=== PATIENT | male | born 1970 | race Two or more races ===

== ENCOUNTER 2018-07-27 10:36 | Outpatient (CLI) | payer OTHER ==
[~2018-07-27 10:36] MED LIST: ASA
== END 2018-07-27 10:45 | disposition home or self-care (01) ==
LOC: RAD 10:36
DX: R06.02 Shortness of breath (principal)

== ENCOUNTER 2019-04-21 10:00 | Outpatient (CLI) | payer OTHER | END 2019-04-21 10:01 | disposition home or self-care (01) | LOC: NUCLEAR 10:00 | DX: I82.401 Acute embolism and thrombosis of unspecified deep veins of right lower extremity (principal); I82.402 Acute embolism and thrombosis of unspecified deep veins of left lower extremity; I73.9 Peripheral vascular disease, unspecified ==

== ENCOUNTER 2019-04-22 09:15 | Outpatient (CLI) | payer OTHER | END 2019-04-22 09:25 | disposition home or self-care (01) | LOC: NUCLEAR 09:15 | DX: I87.2 Venous insufficiency (chronic) (peripheral) (principal) ==

== ENCOUNTER 2021-05-14 11:13 | Outpatient (CLI) | payer OTHER ==
[2021-05-22] MEDS ORDERED: JANUMET XR 50-1 EACH PO (10:56)
[2021-05-22] MEDS ORDERED: GLIPIZIDE10 MG PO (10:56)
[2021-05-22] MEDS ORDERED: SIMVASTATIN40 MG PO (10:57)
[2021-05-22] MEDS ORDERED: TOPROL XL50 M1 PO (10:57)
[2021-05-22] MEDS ORDERED: ZESTRIL2.5 MG PO (10:57)
== END 2021-05-14 11:20 | disposition home or self-care (01) ==
LOC: RAD 11:13
PROVIDERS: ATTEND Urology
DX: I10 Essential (primary) hypertension (principal); E11.9 Type 2 diabetes mellitus without complications

== ENCOUNTER 2021-05-14 12:07 | Outpatient (CLI) | payer OTHER ==
[2021-05-22] MEDS ORDERED: GLIPIZIDE10 MG PO (10:56)
[2021-05-22] MEDS ORDERED: JANUMET XR 50-1 EACH PO (10:56)
[2021-05-22] MEDS ORDERED: ZESTRIL2.5 MG PO (10:57)
[2021-05-22] MEDS ORDERED: TOPROL XL50 M1 PO (10:57)
[2021-05-22] MEDS ORDERED: SIMVASTATIN40 MG PO (10:57)
== END 2021-05-14 12:13 | disposition home or self-care (01) ==
LOC: LAB 12:07 → EKG 12:07 → LAB 12:13
PROVIDERS: ATTEND Urology
DX: I10 Essential (primary) hypertension (principal); E11.9 Type 2 diabetes mellitus without complications

== ENCOUNTER 2021-05-29 10:10 | Day surgery (SDC) | payer OTHER ==
[~2021-05-29 10:10] MED LIST changes: +GLIPIZIDE10 MG PO; +JANUMET XR 50-1 EACH PO; +SIMVASTATIN40 MG PO; +TOPROL XL50 M1 PO; +ZESTRIL2.5 MG PO
== END 2021-05-29 20:10 | disposition home or self-care (01) ==
LOC: CIR.AMB 10:10
PROVIDERS: ATTEND Urology
DX: N47.1 Phimosis (principal); Z20.822 Contact with and (suspected) exposure to COVID-19

== ENCOUNTER → 2022-04-15 09:17 | Outpatient (CLI) | payer OTHER | END | disposition home or self-care (01) | LOC: LAB 09:17 | PROVIDERS: ATTEND Specialist | DX: E11.65 Type 2 diabetes mellitus with hyperglycemia (principal) ==

== ENCOUNTER 2023-05-18 09:04 | Outpatient (CLI) | payer OTHER | END 2023-05-18 09:09 | disposition home or self-care (01) | LOC: LAB 09:04 | PROVIDERS: ATTEND Internal Medicine | DX: D64.9 Anemia, unspecified (principal); E11.8 Type 2 diabetes mellitus with unspecified complications; I48.91 Unspecified atrial fibrillation; N39.0 Urinary tract infection, site not specified; E03.9 Hypothyroidism, unspecified; M35.1 Other overlap syndromes; E11.9 Type 2 diabetes mellitus without complications; E55.9 Vitamin D deficiency, unspecified; Z12.5 Encounter for screening for malignant neoplasm of prostate; Z12.11 Encounter for screening for malignant neoplasm of colon; R97.20 Elevated prostate specific antigen [PSA]; N40.0 Benign prostatic hyperplasia without lower urinary tract symptoms; N41.9 Inflammatory disease of prostate, unspecified ==

== ENCOUNTER 2023-05-18 10:18 | Outpatient (CLI) | payer OTHER | END 2023-05-18 10:20 | disposition home or self-care (01) | LOC: SONOGRAMA 10:18 | PROVIDERS: ATTEND Internal Medicine | DX: I11.9 Hypertensive heart disease without heart failure (principal); N40.0 Benign prostatic hyperplasia without lower urinary tract symptoms ==

== ENCOUNTER 2023-05-19 08:20 | Outpatient (CLI) | payer OTHER | END 2023-05-19 08:24 | disposition home or self-care (01) | LOC: LAB 08:20 | PROVIDERS: ATTEND Internal Medicine | DX: D64.9 Anemia, unspecified (principal); E11.8 Type 2 diabetes mellitus with unspecified complications; I48.91 Unspecified atrial fibrillation; E03.9 Hypothyroidism, unspecified; M53.1 Cervicobrachial syndrome; E11.9 Type 2 diabetes mellitus without complications; E55.9 Vitamin D deficiency, unspecified; Z12.5 Encounter for screening for malignant neoplasm of prostate; Z12.11 Encounter for screening for malignant neoplasm of colon; R97.20 Elevated prostate specific antigen [PSA]; N40.0 Benign prostatic hyperplasia without lower urinary tract symptoms; N41.9 Inflammatory disease of prostate, unspecified ==

== ENCOUNTER 2023-06-03 08:32 | Outpatient (CLI) | payer OTHER | END 2023-06-03 08:33 | disposition home or self-care (01) | LOC: LAB 08:32 | PROVIDERS: ATTEND Internal Medicine | DX: E11.9 Type 2 diabetes mellitus without complications (principal); D64.9 Anemia, unspecified; E88.81 Metabolic syndrome and other insulin resistance; E78.5 Hyperlipidemia, unspecified ==

== ENCOUNTER → 2023-07-10 09:10 | Outpatient (CLI) | payer OTHER ==
[2023-07-10 10:36] LABS: CALCIUM 9.3 mg/dL (8.5-10.1); CREATININE SERUM 0.89 mg/dL (0.70-1.30); POTASSIUM 4.05 mEq/L (3.5-5.1)
[2023-07-10 13:13] LABS: GFR 89.08
== END | disposition home or self-care (01) ==
LOC: LAB 09:10
PROVIDERS: ATTEND Internal Medicine
DX: E11.9 Type 2 diabetes mellitus without complications (principal); E78.5 Hyperlipidemia, unspecified

== ENCOUNTER 2023-11-03 08:43 | Outpatient (CLI) | payer OTHER ==
[2023-11-03 10:08] LABS: PH,URINE 6.5 (5.0-8.0); URINE APPEARANCE Clear; URINE BILIRRUBIN Negative (NEGATIVE); URINE BLOOD Negative; URINE COLOR Dark Yellow; URINE GLUCOSE Negative (NEGATIVE); URINE LEUKOCYTE Negative; URINE NITRATE Negative; URINE PROTEIN Negative (NEGATIVE); URINE UROBILINOGEN 0.2 E.U./dl
[2023-11-03 10:09] LABS: URINE BACTERIA 401.9 uL (0.0-1933); URINE EPITHELIAL CELLS 3.2 uL (0.0-38.8); URINE WBC 5.4 uL (0.0-23.2)
[2023-11-03 10:13] LABS: URINE RBC 1.5 uL (0.0-20.8)
[2023-11-03 10:20] LABS: HEMATOCRIT 44.3 % (39.0-48.0); HEMOGLOBIN 15.1 g/dL (13-16.00); MEAN CELL VOLUME 85.3 fL (80.0-100.00); MEAN CORPUSCULAR HEMOGLOBIN 29.1 pg (27.00-32.0); MEAN CORPUSCULAR HGB CONC 34.1 g/dl (32.0-36.0); PLATELET COUNT 265 K/uL (150-450); RED CELL DISTRIBUTION WIDTH 13.8 % (11.5-14.5)
[2023-11-03 10:37] LABS: ERYTHROCYTE SEDIMENTATION RATE 37 mm/hr
[2023-11-03 10:52] LABS: ALBUMIN 3.5 gm/dL (3.4-5.0); BILIRUBIN TOTAL 0.24 mg/dL (0.3-1.2); CHOL HDL RATIO 3.5 (0-5.0); CREATININE SERUM 0.9 mg/dL (0.70-1.30); GFR 87.94; POTASSIUM 4.44 mEq/L (3.5-5.1); PROSTATIC SPECIFIC ANTIGEN 0.19 NG/ML (0.010-4.00); T4 FREE 0.97 NG/ML (0.76-1.46); TOTAL PROTEIN 7.5 gm/dL (6.4-8.2); TSH 3.68 uIU/mL (0.358-3.74)
[2023-11-03 11:04] LABS: INR 1.02; PARTIAL THROMBOPLASTIN TIME 27.3 SECONDS (22.0-34.0); PROTHROMBIN TIME 10.7 SECONDS (9.0-11.5)
== END 2023-11-03 08:44 | disposition home or self-care (01) ==
LOC: LAB 08:43
PROVIDERS: ATTEND Internal Medicine
DX: D64.9 Anemia, unspecified (principal); E11.8 Type 2 diabetes mellitus with unspecified complications; I48.91 Unspecified atrial fibrillation; N39.0 Urinary tract infection, site not specified; E03.9 Hypothyroidism, unspecified; M35.1 Other overlap syndromes; E11.9 Type 2 diabetes mellitus without complications; E55.9 Vitamin D deficiency, unspecified; Z12.5 Encounter for screening for malignant neoplasm of prostate; Z12.11 Encounter for screening for malignant neoplasm of colon; R97.20 Elevated prostate specific antigen [PSA]; N40.0 Benign prostatic hyperplasia without lower urinary tract symptoms; N41.9 Inflammatory disease of prostate, unspecified

== ENCOUNTER 2023-11-13 08:09 | Outpatient (CLI) | payer OTHER ==
[2023-11-13 08:53] LABS: HEMATOCRIT 43.5 % (39.0-48.0); HEMOGLOBIN 14.7 g/dL (13-16.00); MEAN CELL VOLUME 83.9 fL (80.0-100.00); MEAN CORPUSCULAR HEMOGLOBIN 28.4 pg (27.00-32.0); MEAN CORPUSCULAR HGB CONC 33.8 g/dl (32.0-36.0); PLATELET COUNT 271 K/uL (150-450); RED BLOOD COUNT 5.18 M/uL (4.00-6.00); RED CELL DISTRIBUTION WIDTH 13.9 % (11.5-14.5)
[2023-11-13 09:51] LABS: CALCIUM 9.3 mg/dL (8.5-10.1); CREATININE SERUM 0.9 mg/dL (0.70-1.30); GFR 87.94; POTASSIUM 4.41 mEq/L (3.5-5.1)
== END 2023-11-13 10:31 | disposition home or self-care (01) ==
LOC: LAB 08:09
PROVIDERS: ATTEND Internal Medicine
DX: D64.9 Anemia, unspecified (principal); E11.9 Type 2 diabetes mellitus without complications; E88.1 Lipodystrophy, not elsewhere classified; E78.5 Hyperlipidemia, unspecified

== ENCOUNTER 2024-03-14 08:08 | Outpatient (CLI) | payer OTHER ==
[2024-03-14 09:08] LABS: HEMATOCRIT 42.9 % (39.0-48.0); HEMOGLOBIN 14.7 g/dL (13-16.00); MEAN CELL VOLUME 85.5 fL (80.0-100.00); MEAN CORPUSCULAR HEMOGLOBIN 29.3 pg (27.00-32.0); MEAN CORPUSCULAR HGB CONC 34.2 g/dl (32.0-36.0); PLATELET COUNT 277 K/uL (150-450); RED BLOOD COUNT 5.01 M/uL (4.00-6.00); RED CELL DISTRIBUTION WIDTH 13.9 % (11.5-14.5)
[2024-03-14 09:21] LABS: URINE APPEARANCE Clear; URINE BILIRRUBIN Negative (NEGATIVE); URINE BLOOD Negative; URINE COLOR Yellow; URINE GLUCOSE Negative (NEGATIVE); URINE LEUKOCYTE Negative; URINE NITRATE Negative; URINE PROTEIN Negative (NEGATIVE); URINE UROBILINOGEN 0.2 E.U./dl
[2024-03-14 09:23] LABS: URINE BACTERIA 45.3 uL (0.0-1933); URINE WBC 8.3 uL (0.0-23.2)
[2024-03-14 09:51] LABS: INR 1.02; PROTHROMBIN TIME 10.7 SECONDS (9.0-11.5)
[2024-03-14 09:53] LABS: URINE RBC 0.4 uL (0.0-20.8)
[2024-03-14 10:18] LABS: ALBUMIN 3.5 gm/dL (3.4-5.0); BILIRUBIN TOTAL 0.36 mg/dL (0.3-1.2); CALCIUM 9.5 mg/dL (8.5-10.1); CREATININE SERUM 0.89 mg/dL (0.70-1.30); GFR 89.08; GLOBULINA 3.9 G/DL (2.4-3.5); POTASSIUM 3.85 mEq/L (3.5-5.1); PROSTATIC SPECIFIC ANTIGEN 0.17 NG/ML (0.010-4.00); T4 FREE 0.94 NG/ML (0.76-1.46); TOTAL PROTEIN 7.4 gm/dL (6.4-8.2)
[2024-03-14 10:32] LABS: TSH 5.59 uIU/mL (0.358-3.74)
[2024-03-14 10:36] LABS: ERYTHROCYTE SEDIMENTATION RATE 37 mm/hr
[2024-03-15 09:08] LABS: ESTRADIOL SERUM 44.8 pg/mL (7.6-42.6); FOLLICLE STIMULATING HORMONE 4.4 mIU/mL (1.5-12.4); LEUTEINIZING HORMONE 3.8 mIU/mL (1.7-8.6)
[2024-03-17 23:05] LABS: T T 258 ng/dL (264-916)
[2024-03-18 19:10] LABS: ESTROGENO 161 pg/mL (56-213)
== END 2024-03-14 08:14 | disposition home or self-care (01) ==
LOC: LAB 08:08
PROVIDERS: ATTEND Internal Medicine
DX: D64.9 Anemia, unspecified (principal); E11.8 Type 2 diabetes mellitus with unspecified complications; I48.91 Unspecified atrial fibrillation; N39.0 Urinary tract infection, site not specified; E03.9 Hypothyroidism, unspecified; M35.1 Other overlap syndromes; E11.9 Type 2 diabetes mellitus without complications; E55.9 Vitamin D deficiency, unspecified; Z12.5 Encounter for screening for malignant neoplasm of prostate; Z12.11 Encounter for screening for malignant neoplasm of colon; R97.20 Elevated prostate specific antigen [PSA]; N40.0 Benign prostatic hyperplasia without lower urinary tract symptoms; N41.9 Inflammatory disease of prostate, unspecified

== ENCOUNTER → 2024-04-22 08:10 | Outpatient (CLI) | payer OTHER ==
[2024-04-22 10:40] LABS: FREE TRIODOTIRONINE 2.89 pg/ml (2.18-3.98); T4 FREE 0.89 NG/ML (0.76-1.46); TSH 3.37 uIU/mL (0.358-3.74)
== END | disposition home or self-care (01) ==
LOC: LAB 08:10
PROVIDERS: ATTEND Internal Medicine
DX: N52.8 Other male erectile dysfunction (principal); E11.8 Type 2 diabetes mellitus with unspecified complications; I10 Essential (primary) hypertension

== ENCOUNTER 2024-07-12 22:01 | Emergency (ER) | payer OTHER ==
[~2024-07-12] VITALS: Ht 175.3 cm; Wt 104.3 kg
[2024-07-12 22:37] VITALS: BP 131/67; O2SAT 97
[2024-07-12] MEDS ORDERED: BUTALB/ACETAMINOPHEN/CAFFEINE 1 TAB TABLET PO ONE (23:00)
[2024-07-12] MEDS ORDERED: FAMOtidine 10 MG/ML (4ML VIAL) IV ONE (23:00)
[2024-07-12 23:51] LABS: PH,URINE 5.5 (5.0-8.0); URINE APPEARANCE Clear; URINE BILIRRUBIN Negative (NEGATIVE); URINE BLOOD Negative; URINE COLOR Yellow; URINE GLUCOSE Negative (NEGATIVE); URINE KETONE Trace (NEGATIVE); URINE LEUKOCYTE Negative; URINE NITRATE Negative; URINE PROTEIN 30 (NEGATIVE)
[2024-07-12 23:54] LABS: URINE BACTERIA 22.6 uL (0.0-1933); URINE EPITHELIAL CELLS 5.2 uL (0.0-38.8); URINE RBC 3.8 uL (0.0-20.8)
[2024-07-13] LABS: HEMOGLOBIN 15.6 g/dL (13-16.00); MEAN CELL VOLUME 83.6 fL (80.0-100.00); MEAN CORPUSCULAR HEMOGLOBIN 28.5 pg (27.00-32.0); PLATELET COUNT 242 K/uL (150-450); RED CELL DISTRIBUTION WIDTH 14.2 % (11.5-14.5)
[2024-07-13 00:06] LABS: URINE CAST 1.22 uL (0.0-1.40)
[2024-07-13 00:15] LABS: ALBUMIN 3.5 gm/dL (3.4-5.0); BILIRUBIN TOTAL 0.38 mg/dL (0.3-1.2); CALCIUM 10.7 mg/dL (8.5-10.1); CREATININE SERUM 0.99 mg/dL (0.70-1.30); GFR 78.48; POTASSIUM 4.53 mEq/L (3.5-5.1); TOTAL PROTEIN 7.5 gm/dL (6.4-8.2)
[2024-07-13 00:19] LABS: URINE MUCUS MODERATE
[2024-07-13] MEDS ORDERED: OMEPRAZOLE40 MG PO (02:36)
[2024-07-13] MEDS ORDERED: DOLOGESIC-DF 51 EACH PO (02:36)
== END 2024-07-13 03:11 ==
LOC: ER 22:02
PROVIDERS: General Practice
DX: R51.9 Headache, unspecified (principal); I10 Essential (primary) hypertension; E11.9 Type 2 diabetes mellitus without complications; Z79.84 Long term (current) use of oral hypoglycemic drugs; Z20.822 Contact with and (suspected) exposure to COVID-19

== ENCOUNTER → 2024-08-02 08:03 | Outpatient (CLI) | payer OTHER ==
[~2024-08-02 08:03] MED LIST changes: +DOLOGESIC-DF 51 EACH PO; +OMEPRAZOLE40 MG PO
[2024-08-02 08:38] LABS: HEMATOCRIT 43.6 % (39.0-48.0); HEMOGLOBIN 15.1 g/dL (13-16.00); MEAN CELL VOLUME 83.3 fL (80.0-100.00); MEAN CORPUSCULAR HEMOGLOBIN 28.9 pg (27.00-32.0); MEAN CORPUSCULAR HGB CONC 34.7 g/dl (32.0-36.0); PLATELET COUNT 305 K/uL (150-450); RED BLOOD COUNT 5.23 M/uL (4.00-6.00); RED CELL DISTRIBUTION WIDTH 14.7 % (11.5-14.5)
[2024-08-02 09:27] LABS: CALCIUM 9.3 mg/dL (8.5-10.1); CREATININE SERUM 0.93 mg/dL (0.70-1.30); GFR 84.35; POTASSIUM 4.3 mEq/L (3.5-5.1)
== END | disposition home or self-care (01) ==
LOC: LAB 08:03
PROVIDERS: ATTEND Internal Medicine
DX: E11.9 Type 2 diabetes mellitus without complications (principal); D64.9 Anemia, unspecified; E88.89 Other specified metabolic disorders; E78.5 Hyperlipidemia, unspecified

== ENCOUNTER 2024-12-22 08:25 | Outpatient (CLI) | payer OTHER ==
[2024-12-22 09:15] LABS: HEMATOCRIT 45.3 % (39.0-48.0); HEMOGLOBIN 15.3 g/dL (13-16.00); MEAN CELL VOLUME 83.2 fL (80.0-100.00); MEAN CORPUSCULAR HEMOGLOBIN 28.1 pg (27.00-32.0); MEAN CORPUSCULAR HGB CONC 33.8 g/dl (32.0-36.0); PLATELET COUNT 290 K/uL (150-450); RED BLOOD COUNT 5.45 M/uL (4.00-6.00); RED CELL DISTRIBUTION WIDTH 14.5 % (11.5-14.5)
[2024-12-22 09:20] LABS: ERYTHROCYTE SEDIMENTATION RATE 29 mm/hr
[2024-12-22 09:37] LABS: INR 0.95; PROTHROMBIN TIME 10.4 SECONDS (9.0-11.5)
[2024-12-22 09:42] LABS: URINE APPEARANCE Clear; URINE BILIRRUBIN Negative (NEGATIVE); URINE BLOOD Negative; URINE COLOR Yellow; URINE GLUCOSE Negative (NEGATIVE); URINE KETONE Negative (NEGATIVE); URINE LEUKOCYTE Negative; URINE NITRATE Negative; URINE PROTEIN Negative (NEGATIVE); URINE UROBILINOGEN 0.2 E.U./dl
[2024-12-22 09:46] LABS: URINE BACTERIA 29.3 uL (0.0-1933); URINE EPITHELIAL CELLS 4.2 uL (0.0-38.8); URINE RBC 2.9 uL (0.0-20.8); URINE WBC 10.8 uL (0.0-23.2)
[2024-12-22 10:14] LABS: ALBUMIN 3.4 gm/dL (3.4-5.0); BILIRUBIN TOTAL 0.36 mg/dL (0.3-1.2); CALCIUM 9.4 mg/dL (8.5-10.1); CHOL HDL RATIO 6.7 (0-5.0); CREATININE SERUM 0.9 mg/dL (0.70-1.30); GFR 87.61; GLOBULINA 4.2 G/DL (2.4-3.5); POTASSIUM 4.33 mEq/L (3.5-5.1); PROSTATIC SPECIFIC ANTIGEN 0.173 NG/ML (0.010-4.00); T4 FREE 0.98 NG/ML (0.76-1.46); TOTAL PROTEIN 7.6 gm/dL (6.4-8.2); TSH 3.89 uIU/mL (0.358-3.74)
[2024-12-22 10:26] LABS: ob NEGATIVE (NEGATIVE)
== END 2024-12-22 08:34 | disposition home or self-care (01) ==
LOC: LAB 08:25
PROVIDERS: ATTEND Internal Medicine
DX: D64.9 Anemia, unspecified (principal); E11.8 Type 2 diabetes mellitus with unspecified complications; I48.91 Unspecified atrial fibrillation; N39.0 Urinary tract infection, site not specified; E03.9 Hypothyroidism, unspecified; M35.1 Other overlap syndromes; E11.9 Type 2 diabetes mellitus without complications; E55.9 Vitamin D deficiency, unspecified; Z12.5 Encounter for screening for malignant neoplasm of prostate; Z12.11 Encounter for screening for malignant neoplasm of colon; R97.20 Elevated prostate specific antigen [PSA]; N40.0 Benign prostatic hyperplasia without lower urinary tract symptoms; N41.9 Inflammatory disease of prostate, unspecified

== ENCOUNTER 2025-02-23 20:30 | Inpatient (IN) | payer OTHER ==
[~2025-02-23] VITALS: Ht 175.3 cm; Wt 98.0 kg
[2025-02-23] MEDS ORDERED: LOSARTAN-HCTZ1 EAC1 PO (21:02)
--- NOTE | 2025-02-23 21:04 | NUR ---
SE RECIBE PTE ALERTA, ORIENTADO X3 Y AMBULANDO. PTE REFIERE FIEBRE, MALESTAR GENERAL, ARDOR AL ORINAR Y OLOR NICOLETTE EN LA ORINA HACE 4 GUERRERO. AL MOMENTO DE TRIAGE 103.2 DE TEMP. SE ADMINISTRAN 1000 MG DE TYLENOL. SE MIDEN S/V Y SE UBICA PTE.
[2025-02-23] MEDS ORDERED: ACETAMINOPHEN 500 MG GEL..CAP PO ONE ×2 (21:08→21:15)
[2025-02-23] MEDS ORDERED: FAMOTIDINE/PF 20 MG in 0.9 % SODIUM CHLORIDE 8 ML IV PUSH STA (21:15)
[2025-02-23] MEDS ORDERED: CEFTRIAXONE SODIUM 2,000 MG VIAL IV ONE (21:15)
[2025-02-23] MEDS ORDERED: CEFTRIAXONE SODIUM 2,000 MG VIAL ONE (21:22)
[2025-02-23] MEDS ORDERED: FAMOTIDINE/PF 20 MG/2 ML VIAL ONE (21:22)
--- NOTE | 2025-02-23 21:43 | NUR ---
SE ORIENTA PTE SOBRE TX A SEGUIR, EL MISMO REFIERE ENTENDER. SE RAINA MUESTRA DE LAB, SE CANALIZA Y SE ADMINISTRA MED HORTENCIA ORDEN MEDICA
[2025-02-23 21:45] LABS: BASO % 0.2 % (0.1-1.2); EOS # 0.02 (0.04-0.54); EOS % 0.1 % (0.7-7.0); HEMATOCRIT 41.4 % (40.1-51.0); HEMOGLOBIN 13.7 g/dL (13.7-17.5); LYMPH # 1.02 (1.18-3.74); LYMPH % 5.4 % (19.3-53.1); MEAN CORPUSCULAR HEMOGLOBIN 26.9 pg (25.6-32.2); MONO # 2.37 (0.24-0.82); MONO % 12.5 % (4.7-12.5); NEUT # 15.23 (1.56-6.13); NEUT % 80.3 % (34.0-71.1); PLATELET COUNT 277 K/uL (163-369); RED BLOOD COUNT 5.09 M/uL (4.63-6.08); RED CELL DISTRIBUTION WIDTH 13.6 % (11.6-14.4)
[2025-02-23 22:03] LABS: PH,URINE 5.5 (5.0-8.0); URINE APPEARANCE Turbid; URINE BILIRRUBIN Negative (NEGATIVE); URINE BLOOD Moderate; URINE COLOR Yellow; URINE GLUCOSE Negative (NEGATIVE); URINE KETONE Negative (NEGATIVE); URINE LEUKOCYTE Large; URINE NITRATE Negative
[2025-02-23 22:06] LABS: URINE EPITHELIAL CELLS 16.9 uL (0.0-38.8); URINE RBC 93.9 uL (0.0-20.8)
[2025-02-23 22:07] LABS: ALBUMIN 2.9 gm/dL (3.4-5.0); BILIRUBIN TOTAL 0.53 mg/dL (0.3-1.2); CALCIUM 8.8 mg/dL (8.5-10.1); CREATININE SERUM 1.52 mg/dL (0.70-1.30); GFR 47.85; GLOBULINA 5.1 G/DL (2.4-3.5); POTASSIUM 4.03 mEq/L (3.5-5.1); PROSTATIC SPECIFIC ANTIGEN 1.56 NG/ML (0.010-4.00)
[2025-02-23 22:25] LABS: URINE CAST 1.03 uL (0.0-1.40); URINE PROTEIN 100 (NEGATIVE)
[2025-02-23 22:26] LABS: URINE WBC > 5548.3 uL (0.0-23.2)
[2025-02-23 22:29] LABS: ABG PH 7.468 (7.35-7.45); ABG PO2 72.8 mmHg (80-100); BASE EXCESS 1.7 mmol/l; SaO2 95.5 %
[2025-02-23] MEDS ORDERED: INSULIN GLARGINE,HUM.REC.ANLOG 1,000 UNITS/10 ML UNITS SUBCUTANEO SCH (22:53)
[2025-02-23] MEDS ORDERED: ACETAMINOPHEN 500 MG GEL..CAP PO PRN (23:00)
[2025-02-23] MEDS ORDERED: INSULIN LISPRO 1,000 UNIT/10 ML UNITS SUBCUTANEO PRN (23:00)
[2025-02-23] MEDS ORDERED: 0.9 % SODIUM CHLORIDE 1,000 ML IV SCH (23:00)
[2025-02-23] MEDS ORDERED: DEXTROSE 50 % IN WATER 0.5 G/ML DISP.SYRIN IV PRN (23:00)
[2025-02-24 01:59] LABS: ABG pCO2 35.2 mmHg (35-45); allen test SATISFACTORY; mode ROOM AIR; o2 21 %; puncture site RADIAL LEFT
[2025-02-24 02:14] VITALS: BP 105/60; O2SAT 97
[2025-02-24 02:17] VITALS: BP 105/60
[2025-02-24 03:10] VITALS: BP 127/49; O2SAT 99
[2025-02-24 07:19] LABS: INR 1.05; PARTIAL THROMBOPLASTIN TIME 28.5 SECONDS (22.0-34.0); PROTHROMBIN TIME 11.4 SECONDS (9.0-11.5)
[2025-02-24 08:00] VITALS: BP 116/68; O2SAT 95
[2025-02-24] MEDS ORDERED: FAMOTIDINE/PF 20 MG in 0.9 % SODIUM CHLORIDE 8 ML IV PUSH SCH (09:00)
[2025-02-24] MEDS ORDERED: LOSARTAN/HYDROCHLOROTHIAZIDE 1 UDTAB TABLET PO SCH (09:00)
[2025-02-24] MEDS ORDERED: CEFTRIAXONE SODIUM 2,000 MG in 0.9 % SODIUM CHLORIDE 100 ML IV SCH (09:00)
[2025-02-24] MEDS ORDERED: METOPROLOL SUCCINATE 50 MG TAB.SR.24H PO SCH (09:00)
[2025-02-24 16:40] VITALS: BP 135/79; O2SAT 95
[2025-02-24] MEDS ORDERED: SIMVASTATIN 40 MG TABLET PO SCH (17:00)
[2025-02-25 01:13] VITALS: BP 131/83; O2SAT 100
[2025-02-25 08:00] LABS: BASO % 0.2 % (0.1-1.2); EOS # 0.01 (0.04-0.54); EOS % 0.1 % (0.7-7.0); HEMATOCRIT 41.9 % (40.1-51.0); HEMOGLOBIN 13.5 g/dL (13.7-17.5); LYMPH # 1.43 (1.18-3.74); MEAN CORPUSCULAR HEMOGLOBIN 27.1 pg (25.6-32.2); MONO # 2.23 (0.24-0.82); NEUT # 14.06 (1.56-6.13); NEUT % 78.4 % (34.0-71.1); PLATELET COUNT 274 K/uL (163-369); RED BLOOD COUNT 4.98 M/uL (4.63-6.08); RED CELL DISTRIBUTION WIDTH 13.9 % (11.6-14.4)
[2025-02-25 08:18] LABS: MONO % 12.4 % (4.7-12.5)
[2025-02-25 08:27] LABS: ALBUMIN 2.5 gm/dL (3.4-5.0); BILIRUBIN TOTAL 0.47 mg/dL (0.3-1.2); CALCIUM 8.3 mg/dL (8.5-10.1); CREATININE SERUM 1.06 mg/dL (0.70-1.30); GFR 72.53; GLOBULINA 4.5 G/DL (2.4-3.5); MAGNESIUM 1.8 mg/dL (1.8-2.4); PHOSPHOROUS 2.4 mg/dL (2.5-4.9); POTASSIUM 3.9 mEq/L (3.5-5.1)
[2025-02-25 08:28] LABS: C-REACTIVE PROTEIN 35.4 MG/DL (0.00-0.29)
[2025-02-25 16:22] VITALS: BP 119/74; O2SAT 95
[2025-02-26 01:16] VITALS: BP 130/76; O2SAT 96
[2025-02-26 09:49] VITALS: BP 121/76; O2SAT 99
[2025-02-26 11:59] LABS: URINE APPEARANCE Clear; URINE BILIRRUBIN Negative (NEGATIVE); URINE BLOOD Negative; URINE COLOR Yellow; URINE KETONE Negative (NEGATIVE); URINE LEUKOCYTE Negative; URINE NITRATE Negative; URINE PROTEIN Negative (NEGATIVE)
[2025-02-26 12:02] LABS: URINE BACTERIA 6.1 uL (0.0-1933); URINE EPITHELIAL CELLS 2.3 uL (0.0-38.8); URINE RBC 3.5 uL (0.0-20.8); URINE WBC 11.7 uL (0.0-23.2)
[2025-02-26 12:04] LABS: URINE CAST 0.14 uL (0.0-1.40); URINE GLUCOSE 500 MG/DL (NEGATIVE)
[2025-02-26 17:08] VITALS: BP 121/77; O2SAT 92
[2025-02-27 00:09] VITALS: BP 139/83; O2SAT 90
[2025-02-27 06:24] LABS: BASO % 0.4 % (0.1-1.2); EOS # 0.15 (0.04-0.54); EOS % 1.8 % (0.7-7.0); HEMATOCRIT 41.4 % (40.1-51.0); HEMOGLOBIN 13.4 g/dL (13.7-17.5); LYMPH # 1.73 (1.18-3.74); LYMPH % 20.4 % (19.3-53.1); MEAN CORPUSCULAR HEMOGLOBIN 27.1 pg (25.6-32.2); MONO # 1.23 (0.24-0.82); NEUT # 5.24 (1.56-6.13); NEUT % 61.5 % (34.0-71.1); PLATELET COUNT 327 K/uL (163-369); RED BLOOD COUNT 4.94 M/uL (4.63-6.08); RED CELL DISTRIBUTION WIDTH 13.8 % (11.6-14.4)
[2025-02-27 06:39] LABS: MONO % 14.5 % (4.7-12.5)
[2025-02-27 08:22] VITALS: BP 143/84
[2025-02-27 17:59] VITALS: BP 121/78
[2025-02-27] MEDS ORDERED: INSULIN NPH HUMAN ISOPHANE 1,000 UNITS/10 ML UNITS SUBCUTANEO STA (19:14)
[2025-02-27] MEDS ORDERED: CIPROFLOXACIN IN 5 % DEXTROSE 200 ML IV SCH (21:00)
[2025-02-28 00:36] VITALS: BP 149/90; O2SAT 99
[2025-02-28] MEDS ORDERED: INSULIN LISPRO 1,000 UNIT/10 ML UNITS SUBCUTANEO SCH (08:00)
[2025-02-28 08:30] VITALS: BP 134/76; O2SAT 99
[2025-02-28] MEDS ORDERED: SODIUM CHLORIDE 0.45 % 1,000 ML IV SCH (08:30)
[2025-02-28] MEDS ORDERED: METOPROLOL SUCCINATE 100 MG TAB.SR.24H PO SCH (09:00)
[2025-02-28] MEDS ORDERED: AMLODIPINE BESYLATE 5 MG TABLET PO SCH (09:00)
[2025-02-28 14:56] LABS: CALCIUM 9.6 mg/dL (8.5-10.1); CREATININE SERUM 0.9 mg/dL (0.70-1.30); GFR 87.61; POTASSIUM 4.68 mEq/L (3.5-5.1)
[2025-02-28] MEDS ORDERED: INSULIN GLARGINE,HUM.REC.ANLOG 1,000 UNITS/10 ML UNITS SUBCUTANEO SCH (17:00)
[2025-02-28 17:19] VITALS: BP 131/72
[2025-02-28] MEDS ORDERED: PANTOPRAZOLE SODIUM 40 MG/VIAL VIAL IV SCH (21:00)
[2025-03-01 00:16] VITALS: BP 147/84; O2SAT 97
[2025-03-01 08:13] VITALS: BP 125/73; O2SAT 94
[2025-03-01] MEDS ORDERED: INSULIN GLARGINE,HUM.REC.ANLOG 1,000 UNITS/10 ML UNITS SUBCUTANEO SCH (09:00)
[2025-03-01 17:04] VITALS: BP 119/72
[2025-03-02 01:35] VITALS: BP 125/78
[2025-03-02] MEDS ORDERED: INSULIN LISPRO 1,000 UNIT/10 ML UNITS SUBCUTANEO SCH (08:00)
[2025-03-02 08:56] VITALS: BP 117/75; O2SAT 93
[2025-03-02] MEDS ORDERED: INSULIN GLARGINE,HUM.REC.ANLOG 1,000 UNITS/10 ML UNITS SUBCUTANEO SCH (09:00)
[2025-03-02] MEDS ORDERED: CIPRO500 MG PO (12:09)
[2025-03-02] MEDS ORDERED: PROTONIX40 MG PO (12:10)
== END 2025-03-02 12:38 | disposition home or self-care (01) | DRG 872 ==
LOC: ER 20:30 → SEC-K 23:18 → SURH 23:18 → MEDJ 02-25 07:29
PROVIDERS: General Practice; Internal Medicine; Internal Medicine Infectious Disease; ADMIT Internal Medicine; ATTEND Internal Medicine
PROC: BW21ZZZ Computerized Tomography (CT Scan) of Abdomen and Pelvis (ICD-10-PCS; principal; 2025-02-27)
PROC: BW24ZZZ Computerized Tomography (CT Scan) of Chest and Abdomen (ICD-10-PCS; 2025-03-01)
DX: A41.59 Other Gram-negative sepsis (principal); N39.0 Urinary tract infection, site not specified; N17.9 Acute kidney failure, unspecified; E78.5 Hyperlipidemia, unspecified; E86.0 Dehydration; E11.65 Type 2 diabetes mellitus with hyperglycemia; Z79.4 Long term (current) use of insulin; J20.9 Acute bronchitis, unspecified; N20.0 Calculus of kidney; I10 Essential (primary) hypertension; B96.20 Unspecified Escherichia coli [E. coli] as the cause of diseases classified elsewhere

== ENCOUNTER 2025-04-03 08:54 | Outpatient (CLI) | payer OTHER ==
[~2025-04-03 08:54] MED LIST changes: +CIPRO500 MG PO; +LOSARTAN-HCTZ1 EAC1 PO; +PROTONIX40 MG PO
[2025-04-03 10:35] LABS: BASO % 0.5 % (0.1-1.2); EOS # 0.28 (0.04-0.54); EOS % 2.7 % (0.7-7.0); LYMPH # 2.72 (1.18-3.74); LYMPH % 26.1 % (19.3-53.1); MEAN PLATELET VOLUME 9.70 fl (9.4-12.4); MONO # 1.08 (0.24-0.82); MONO % 10.4 % (4.7-12.5); NEUT # 6.20 (1.56-6.13); NEUT % 59.4 % (34.0-71.1); RED CELL DISTRIBUTION WIDTH 14.5 % (11.6-14.4)
[2025-04-03 10:38] LABS: INR 1.0
[2025-04-03 10:52] LABS: URINE APPEARANCE Clear; URINE BILIRRUBIN Negative (NEGATIVE); URINE BLOOD Negative; URINE COLOR Yellow; URINE GLUCOSE Negative (NEGATIVE); URINE KETONE Negative (NEGATIVE); URINE LEUKOCYTE Negative; URINE NITRATE Negative; URINE PROTEIN Negative (NEGATIVE); URINE UROBILINOGEN 0.2 E.U./dl
[2025-04-03 10:54] LABS: URINE BACTERIA 29.9 uL (0.0-1933); URINE EPITHELIAL CELLS 3.8 uL (0.0-38.8); URINE WBC 4.7 uL (0.0-23.2)
[2025-04-03 11:03] LABS: URINE CAST 1.17 uL (0.0-1.40); URINE RBC 0.8 uL (0.0-20.8)
[2025-04-03 11:22] LABS: ALT/SGPT 42.0 U/L (12-78); AST/SGOT 19.0 U/L (15-37); BILIRUBIN TOTAL 0.51 mg/dL (0.3-1.2); BUN CREA RATIO 23.0 (7.0-25.0); CHOL HDL RATIO 4.8 (0-5.0); CREATININE SERUM 1.02 mg/dL (0.70-1.30); GFR 75.82; GLOBULINA 4.0 G/DL (2.4-3.5); GLUCOSE FASTING 142.0 mg/dL (65-100); HDL 26.0 mg/dl (40-60); LDL 38.0 mg/dl (0-130); OSMOLALITY SERUM 285.0 MOSM/KG (275-295); PROSTATIC SPECIFIC ANTIGEN 0.422 NG/ML (0.010-4.00); T4 FREE 0.99 NG/ML (0.76-1.46); TSH 4.34 uIU/mL (0.358-3.74); VLDL 62.0 (0-39)
== END 2025-04-03 08:56 | disposition home or self-care (01) ==
LOC: LAB 08:54
PROVIDERS: ATTEND Internal Medicine
DX: D64.9 Anemia, unspecified (principal); E11.8 Type 2 diabetes mellitus with unspecified complications; I48.91 Unspecified atrial fibrillation; N39.0 Urinary tract infection, site not specified; E03.9 Hypothyroidism, unspecified; M35.1 Other overlap syndromes; E11.9 Type 2 diabetes mellitus without complications; E55.9 Vitamin D deficiency, unspecified; Z12.5 Encounter for screening for malignant neoplasm of prostate; Z12.11 Encounter for screening for malignant neoplasm of colon; R97.20 Elevated prostate specific antigen [PSA]; N40.0 Benign prostatic hyperplasia without lower urinary tract symptoms; N41.9 Inflammatory disease of prostate, unspecified

== ENCOUNTER 2025-04-03 10:02 | Outpatient (CLI) | payer OTHER | END 2025-04-03 10:04 | disposition home or self-care (01) | LOC: SONOGRAMA 10:02 | PROVIDERS: ATTEND Internal Medicine | DX: R10.9 Unspecified abdominal pain (principal) ==

== ENCOUNTER → 2025-05-23 08:08 | Outpatient (CLI) | payer OTHER ==
[2025-05-23 09:09] LABS: BASO % 0.5 % (0.1-1.2); EOS # 0.25 (0.04-0.54); EOS % 3.1 % (0.7-7.0); LYMPH # 2.49 (1.18-3.74); LYMPH % 30.6 % (19.3-53.1); MEAN PLATELET VOLUME 10.30 fl (9.4-12.4); MONO # 0.96 (0.24-0.82); MONO % 11.8 % (4.7-12.5); NEUT # 4.37 (1.56-6.13); NEUT % 53.6 % (34.0-71.1); RED CELL DISTRIBUTION WIDTH 13.8 % (11.6-14.4)
[2025-05-23 10:01] LABS: BUN CREA RATIO 19.0 (7.0-25.0); CHOL HDL RATIO 5.5 (0-5.0); CREATININE SERUM 1.0 mg/dL (0.70-1.30); GFR 77.58; HDL 23.0 mg/dl (40-60); LDL 20.0 mg/dl (0-130); PHOSPHOKINASE CREATININE 147.0 U/L (39-308); VLDL 82.0 (0-39)
[2025-05-23 10:02] LABS: GLUCOSE FASTING 271.0 mg/dL (65-100); OSMOLALITY SERUM 289.0 MOSM/KG (275-295)
[2025-05-24 07:11] LABS: hav igm Negative (Negative); hep b c Negative (Negative); hep b s ag Negative (Negative)
== END | disposition home or self-care (01) ==
LOC: LAB 08:08
PROVIDERS: ATTEND Internal Medicine
DX: E11.9 Type 2 diabetes mellitus without complications (principal); D64.9 Anemia, unspecified; E88.819 Insulin resistance, unspecified; E78.5 Hyperlipidemia, unspecified; N39.0 Urinary tract infection, site not specified; E03.9 Hypothyroidism, unspecified; I48.91 Unspecified atrial fibrillation; Z12.5 Encounter for screening for malignant neoplasm of prostate; E11.8 Type 2 diabetes mellitus with unspecified complications; M35.1 Other overlap syndromes

== ENCOUNTER → 2025-05-30 08:18 | Outpatient (CLI) | payer OTHER ==
[2025-05-30 08:39] LABS: BASO % 0.4 % (0.1-1.2); EOS # 0.26 (0.04-0.54); EOS % 2.8 % (0.7-7.0); LYMPH # 2.73 (1.18-3.74); LYMPH % 29.5 % (19.3-53.1); MEAN PLATELET VOLUME 10.20 fl (9.4-12.4); MONO # 1.12 (0.24-0.82); NEUT # 5.05 (1.56-6.13); NEUT % 54.8 % (34.0-71.1); RED CELL DISTRIBUTION WIDTH 13.7 % (11.6-14.4)
[2025-05-30 08:42] LABS: MONO % 12.1 % (4.7-12.5)
[2025-05-30 09:05] LABS: BUN CREA RATIO 17.0 (7.0-25.0); CREATININE SERUM 1.07 mg/dL (0.70-1.30); GFR 71.75; OSMOLALITY SERUM 287.0 MOSM/KG (275-295)
[2025-05-30 09:06] LABS: GLUCOSE FASTING 337.0 mg/dL (65-100)
== END | disposition home or self-care (01) ==
LOC: LAB 08:18
PROVIDERS: ATTEND Internal Medicine
DX: E11.9 Type 2 diabetes mellitus without complications (principal); D64.9 Anemia, unspecified; E88.819 Insulin resistance, unspecified; E78.5 Hyperlipidemia, unspecified

== ENCOUNTER → 2025-06-06 09:01 | Outpatient (CLI) | payer OTHER ==
[2025-06-06 09:24] LABS: BASO % 0.4 % (0.1-1.2); EOS # 0.23 (0.04-0.54); EOS % 2.4 % (0.7-7.0); LYMPH # 2.65 (1.18-3.74); LYMPH % 27.3 % (19.3-53.1); MEAN PLATELET VOLUME 10.00 fl (9.4-12.4); MONO # 1.06 (0.24-0.82); MONO % 10.9 % (4.7-12.5); NEUT # 5.70 (1.56-6.13); NEUT % 58.6 % (34.0-71.1); RED CELL DISTRIBUTION WIDTH 13.9 % (11.6-14.4)
[2025-06-06 10:14] LABS: BUN CREA RATIO 20.0 (7.0-25.0); CREATININE SERUM 0.99 mg/dL (0.70-1.30); GFR 78.2; OSMOLALITY SERUM 287.0 MOSM/KG (275-295)
[2025-06-06 10:34] LABS: GLUCOSE FASTING 297.0 mg/dL (65-100)
== END | disposition home or self-care (01) ==
LOC: LAB 09:01
PROVIDERS: ATTEND Internal Medicine
DX: E11.9 Type 2 diabetes mellitus without complications (principal); D64.9 Anemia, unspecified; E88.819 Insulin resistance, unspecified; E78.5 Hyperlipidemia, unspecified

== ENCOUNTER 2025-06-26 07:48 | Outpatient (CLI) | payer OTHER ==
[2025-06-26 08:57] LABS: BASO % 0.5 % (0.1-1.2); EOS # 0.33 (0.04-0.54); EOS % 3.3 % (0.7-7.0); LYMPH # 2.20 (1.18-3.74); LYMPH % 22.0 % (19.3-53.1); MEAN PLATELET VOLUME 10.00 fl (9.4-12.4); MONO # 1.05 (0.24-0.82); MONO % 10.5 % (4.7-12.5); NEUT # 6.35 (1.56-6.13); NEUT % 63.3 % (34.0-71.1); RED CELL DISTRIBUTION WIDTH 13.4 % (11.6-14.4)
[2025-06-26 09:38] LABS: BUN CREA RATIO 18.0 (7.0-25.0); CREATININE SERUM 0.92 mg/dL (0.70-1.30); GFR 85.1; GLUCOSE FASTING 135.0 mg/dL (65-100); OSMOLALITY SERUM 279.0 MOSM/KG (275-295)
== END 2025-06-26 07:53 | disposition home or self-care (01) ==
LOC: LAB 07:48
PROVIDERS: ATTEND Internal Medicine
DX: E11.9 Type 2 diabetes mellitus without complications (principal); D64.9 Anemia, unspecified; E88.819 Insulin resistance, unspecified; E78.5 Hyperlipidemia, unspecified

== ENCOUNTER 2025-08-09 08:17 | Outpatient (CLI) | payer OTHER ==
[2025-08-09 09:15] LABS: BASO % 0.4 % (0.1-1.2); EOS # 0.26 (0.04-0.54); EOS % 2.5 % (0.7-7.0); LYMPH # 2.75 (1.18-3.74); LYMPH % 26.8 % (19.3-53.1); MEAN PLATELET VOLUME 9.90 fl (9.4-12.4); MONO # 1.21 (0.24-0.82); MONO % 11.8 % (4.7-12.5); NEUT # 5.99 (1.56-6.13); NEUT % 58.2 % (34.0-71.1); RED CELL DISTRIBUTION WIDTH 13.5 % (11.6-14.4)
[2025-08-09 11:19] LABS: BUN CREA RATIO 18.0 (7.0-25.0); CREATININE SERUM 1.08 mg/dL (0.70-1.30); GFR 70.73; OSMOLALITY SERUM 284.0 MOSM/KG (275-295)
[2025-08-09 11:25] LABS: GLUCOSE FASTING 109.0 mg/dL (65-100)
== END 2025-08-09 08:53 | disposition home or self-care (01) ==
LOC: LAB 08:17
PROVIDERS: ATTEND Internal Medicine
DX: E11.9 Type 2 diabetes mellitus without complications (principal); D64.9 Anemia, unspecified; E88.810 Metabolic syndrome; E78.5 Hyperlipidemia, unspecified

== ENCOUNTER 2025-08-24 10:11 | Outpatient (CLI) | payer OTHER | END 2025-08-24 10:32 | disposition home or self-care (01) | LOC: MRI 10:11 | PROVIDERS: ATTEND Internal Medicine | DX: M54.59 Other low back pain (principal); M51.27 Other intervertebral disc displacement, lumbosacral region; R80.9 Proteinuria, unspecified | CPT/HCPCS: 72148 ==